=== PATIENT | female | born 1960 | race African-American/Black ===

== ENCOUNTER 2017-10-21 13:01 | Emergency (ER) | payer OTHER ==
[~2017-10-21] VITALS: Ht 167.6 cm; Wt 81.7 kg
[~2017-10-21 13:01] MED LIST: AMOXICILLIN 50500 M1 PO; TESSALON PERLE100 MG PO; VENTOLIN HFA 1818 GM INH; [UNRECOGNIZED DRUG - REMARK]
[2017-10-21] MEDS ORDERED: MUCINEX D TABL1 EAC1 PO (14:03)
[2017-10-21] MEDS ORDERED: VENTOLIN HFA 1818 GM INH (14:03)
[2017-10-21] MEDS ORDERED: IBUPROFEN 600600 M1 PO (14:03)
[2017-10-21] MEDS ORDERED: TESSALON PERLE100 MG PO (14:03)
== END 2017-10-21 14:50 | disposition home or self-care (01) ==
LOC: ER 13:01
DX: J11.1 Influenza due to unidentified influenza virus with other respiratory manifestations (principal); J98.01 Acute bronchospasm; R05 Cough; J06.9 Acute upper respiratory infection, unspecified; J45.909 Unspecified asthma, uncomplicated; Z98.890 Other specified postprocedural states

== ENCOUNTER → 2019-01-20 | Outpatient (CLI) | payer OTHER ==
[~2019-01-20] VITALS: Ht 167.6 cm; Wt 81.6 kg
[~2019-01-20] MED LIST changes: +IBUPROFEN 600600 M1 PO; +MUCINEX D TABL1 EAC1 PO; +MULTIVITAMINS1 EAC7 PO; +VITAMIN D3400 UNIT PO
--- NOTE | 2019-01-22 08:24 | P ---
[facility] [place] [address] PROCEDURE REPORT Name: REJI PRINGLE Room #: REG YUDI Sims#: [id number] Admission: 01/20/19 ������������������ Attend Phys: Lio Cervantes Discharge: ������������������ Date of : 56 Report #: [id number] THIS REPORT FOR: //name// CC: Lio Sanchez MD DATE OF SERVICE: 01/20/2019 PROCEDURE PERFORMED: Colonoscopy with biopsies. HISTORY OF PRESENT ILLNESS: The patient is a 58-year-old female who presents today for her first routine screening colonoscopy. She denies any symptoms. No family history of colon cancer. DESCRIPTION OF PROCEDURE: The risks and benefits of the procedure were explained to the patient, those risks including, but not limited to, bleeding, perforation and the risk of sedation. She understood these risks and gave informed consent. Sedation was given using propofol per anesthesia. Next, a digital rectal exam was initially performed, which was normal. Next, using a standard Olympus colonoscope, the scope was placed in the patient's anus and advanced under direct vision to the cecum. The overall prep was excellent. In the cecum near the appendiceal orifice, a small 3 mm sessile polyp was noted. This was removed with cold forceps, otherwise normal. The ileocecal valve was normal. The ascending and transverse colon were normal. In the descending colon, a 4 mm sessile polyp was noted and removed with cold forceps. Another 4 mm sessile polyp was noted in the sigmoid colon and removed with cold forceps. The rectal mucosa was normal. On retroflexion, no abnormalities were noted. The scope was then withdrawn and the procedure terminated. The patient tolerated the procedure well. IMPRESSION: 1. Three small colonic polyps. 2. Otherwise, normal colonoscopy. RECOMMENDATIONS: 1. Await biopsy results. 2. If polyps are hyperplastic, repeat in 10 years; if adenomatous polyp, repeat in 5 years. Thank you for allowing me to participate in her care. ��������������������������������������������� <ELECTRONICALLY SIGNED> ���������������������������������������� By: Lio Rowe MD ��������������������������������������������� 01/22/19 0824 1004 2230 Lio Rowe MD /nt
--- NOTE | 2019-01-22 13:08 | PATH ---
[facility] [place] [address] PATHOLOGY RPT PROCEDURE Name: MARITZA UNGER Room #: REG YUDI Yenny.#: [id number] ������������������ Admission: 01/20/19 ������������������ Date of : 56 Discharge: Report #: [id number] Path Case #: [id number] [facility] Accession Number: [id number] . 01 Material submitted: . PART A: cecum - BX POLYP AT CECUM PART B: colon - BX POLYP AT DESCENDING COLON. Modifiers: descending PART C: colon - BX POLYP AT SIGMOID COLON . 01 Clinical history: . Pre-op diagnosis: Screening Post-op diagnosis: Colon polyps . 02 Diagnosis: A. Colonic mucosa "biopsy polyp at cecum": - Hyperplastic polyps with focal early adenomatous change. - There is no evidence of high-grade dysplasia or malignancy. . B. Colonic mucosa "polyp at descending colon": - Fragments of hyperplastic polyps. - There is no evidence of adenomatous change, high-grade dysplasia or malignancy. . C. Colonic mucosa "polyp at sigmoid colon" - Tubular adenoma. - There is no evidence of high-grade dysplasia or malignancy. (SHA:misael 01/22/2019) QTP/01/22/2019 . 02 Electronically signed: . Álvaro Trinidad MD, Pathologist NPI- [id number] . 01 Gross description: . A. The specimen is received in formalin, labeled "Maritza Unger, biopsy polyp at cecum". Received are three segments of pale coronado soft tissue ranging in size from 0.3 to 0.5 cm in maximum dimensions. The specimen is submitted entirely in cassette A1. . B. The specimen is received in formalin, labeled "Maritza Unger, polyp at descending colon". Received are three segments of pale coronado soft tissue ranging in size from 0.2 to 0.7 cm in maximum dimensions. The specimen is submitted entirely in cassette B1. . C. The specimen is received in formalin, labeled "Maritza Unger, polyp at sigmoid colon". Received are four segments of pale coronado soft tissue ranging in size from 0.3 to 0.5 cm in maximum dimensions. [place] [address] PATHOLOGY RPT PROCEDURE Name: MARITZA UNGER Room #: REG YUDI Sims#: [id number] ������������������ Admission: 01/20/19 ������������������ Date of : 56 Discharge: Report #: [id number] Path Case #: [id number] submitted entirely in cassette C1. (CAA; 01/21/2019) QAC/QAC . 02 Pathologist provided ICD-10: D12.5, K63.5 . 02 CPT . 791527, 430049, 935056 Specimen Comment: A courtesy copy of this report has been sent to Specimen Comment: [phone], . Specimen Comment: Report sent to / DR JUSTICE Performed at: [address], [place] [id number] MD Jose Solis MD Phone: [phone] Performed at: [address] [id number] MD Shonna Moreno MD Phone: [phone]
== END | disposition home or self-care (01) ==
LOC: GI 08:21
DX: Z12.11 Encounter for screening for malignant neoplasm of colon (principal); K63.5 Polyp of colon; D12.5 Benign neoplasm of sigmoid colon; J45.909 Unspecified asthma, uncomplicated; Z98.51 Tubal ligation status; Z98.890 Other specified postprocedural states; Z79.899 Other long term (current) drug therapy
CPT/HCPCS: 62110; 62900

== ENCOUNTER → 2019-01-27 | Outpatient (CLI) | payer OTHER | LOC: RAD 12:25 | DX: Z12.31 Encounter for screening mammogram for malignant neoplasm of breast (principal) ==

== ENCOUNTER → 2019-02-03 | Outpatient (CLI) | payer OTHER | LOC: ULTRA 10:24 | DX: D25.9 Leiomyoma of uterus, unspecified (principal) ==

== ENCOUNTER 2019-12-13 12:58 | Emergency (ER) | payer OTHER ==
[~2019-12-13] VITALS: Ht 167.6 cm; Wt 77.1 kg
[2019-12-13 14:41] LABS: BASOPHILS 0.7 % (0.0-2.0); EOSINOPHILS 1.4 % (0.0-3.0); HEMATOCRIT 39.7 % (37.0-47.0); LYMPHOCYTES 38.5 % (24.0-44.0); MCH 31.9 pg (26.0-34.0); MCHC 32.8 g/dL (28.0-37.0); MCV 97.2 fL (80.0-100.0); MONOCYTES 6.5 % (1.0-8.0); PLATELET COUNT 221 thou/uL (150-400); POLYS 52.9 % (36.0-66.0); RBC 4.09 mil/uL (4.20-5.00); RDW 13.1 % (10.5-14.5); WBC 7.5 thou/uL (4.0-11.0)
[2019-12-13 14:50] LABS: ANION GAP 6 mmol/L (7-16); BUN 19 mg/dL (7-18); CALCIUM 9.4 mg/dL (8.5-10.1); CHLORIDE 100 mmol/L (98-107); CO2 31 mmol/L (21-32); CREATININE 0.9 mg/dL (0.6-1.0); GLUCOSE 102 mg/dL (74-106); POTASSIUM 3.8 mmol/L (3.5-5.1); SODIUM 137 mmol/L (136-145)
[2019-12-13 14:58] LABS: TROPONIN-I <0.06 ng/mL (<0.06)
--- NOTE | 2019-12-13 17:01 | EKG ---
[facility] [place] [address] ELECTROCARDIOGRAM REPORT Name: REJI PRINGLE Room #: REG [facility]..#: [id number] Admission: 12/13/19 Attend Phys: Discharge: Date of : 56 Report #: [id number] THIS REPORT FOR: cc: Elizabeth Sanchez MD, Nora P. MD Lundgren,Chicho Carrera MD [facility] ~ THIS REPORT FOR: //name// [facility] ED Test Date: 2019-12-13 Test Time: 14:26:59 Pat Name: REJI PRINGLE Department: Room: Gender: Cannoneer: [facility] : 1960 Requested By: Smith Hwang Order Number: [id number] MD: Chicho Barrett Measurements Intervals [place] Rate: 84 P: 44 DE: 195 QRS: -38 QRSD: 86 T: -29 QT: 400 QTc: 473 Interpretive Statements Sinus rhythm Left anterior hemiblock Left ventricular hypertrophy Nonspecific T abnormalities, diffuse leads No previous ECG available for comparison Electronically Signed On 12-13-2019 16:59:57 [employer]ATER [employer]UCK [employer] by Chicho Barrett [email or web address] <ELECTRONICALLY SIGNED> By: Chicho Barrett MD, [facility] 12/13/19 1659 1426 1426 Chicho Barrett MD, [facility] /EPI
[2019-12-13] MEDS ORDERED: NORVASC 2.5 MG2.5 M1 PO (17:26)
[2019-12-13 17:40] VITALS: BP 192/81
== END 2019-12-13 17:40 | disposition home or self-care (01) ==
LOC: ER 12:58
PROVIDERS: Emergency Medicine
DX: I67.4 Hypertensive encephalopathy (principal); J45.909 Unspecified asthma, uncomplicated

== ENCOUNTER → 2020-03-29 | Outpatient (CLI) | payer OTHER ==
[~2020-03-29] MED LIST changes: +NORVASC 2.5 MG2.5 M1 PO
== END ==
LOC: RAD 09:44
PROVIDERS: ATTEND Family Medicine
DX: Z12.31 Encounter for screening mammogram for malignant neoplasm of breast (principal)

== ENCOUNTER → 2020-04-24 | Outpatient (CLI) | payer OTHER | LOC: SJCVCIMAG 11:18 | PROVIDERS: ATTEND Internal Medicine | DX: I08.1 Rheumatic disorders of both mitral and tricuspid valves (principal); J45.909 Unspecified asthma, uncomplicated ==

== ENCOUNTER → 2021-04-03 | Outpatient (CLI) | payer OTHER | LOC: BC 03-30 13:32 | PROVIDERS: ATTEND Family Medicine | DX: Z12.31 Encounter for screening mammogram for malignant neoplasm of breast (principal) ==

== ENCOUNTER 2021-11-04 01:30 | Emergency (ER) | payer OTHER ==
[~2021-11-04] VITALS: Ht 167.6 cm; Wt 79.4 kg
[2021-11-04 02:04] LABS: ABSOLUTE NEUTROPHILS 4.2 thou/uL (1.4-8.2); BASOPHILS 0.4 % (0.0-2.0); EOSINOPHILS 1.6 % (0.0-3.0); HEMATOCRIT 34.2 % (37.0-47.0); HEMOGLOBIN 11.4 gm/dL (12.0-15.0); LYMPHOCYTES 40.4 % (24.0-44.0); MCH 32.1 pg (26.0-34.0); MCHC 33.2 g/dL (28.0-37.0); MCV 96.7 fL (80.0-100.0); MONOCYTES 8.8 % (1.0-8.0); PLATELET COUNT 234 thou/uL (150-400); POLYS 48.8 % (36.0-66.0); RBC 3.53 mil/uL (4.20-5.00); RDW 13.3 % (10.5-14.5); WBC 8.5 thou/uL (4.0-11.0)
[2021-11-04] MEDS ORDERED: BYSTOLIC10 MG PO (02:13)
[2021-11-04 02:20] LABS: CALCIUM 9.1 mg/dL (8.5-10.1); CREATININE 1.2 mg/dL (0.6-1.0); POTASSIUM 3.5 mmol/L (3.5-5.1)
[2021-11-04] MEDS ORDERED: HYDROCHLOROTHIA25 M1 PO (02:21)
[2021-11-04 02:30] LABS: ALBUMIN 3.7 g/dL (3.4-5.0); MAGNESIUM 2.1 mg/dL (1.8-2.4); TOTAL BILIRUBIN 0.2 mg/dL (0.2-1.0); TOTAL PROTEIN 7.8 g/dL (6.4-8.2)
[2021-11-04 03:00] VITALS: BP 148/60
--- NOTE | 2021-11-04 13:00 | EKG ---
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: : 1960 Requested By: Toney Gale Order Number: [id number] MD: Chicho Barrett Measurements Intervals [place] Rate: 68 P: 28 VT: 185 QRS: -25 QRSD: 86 T: -3 QT: 401 QTc: 427 Interpretive Statements Sinus rhythm Left ventricular hypertrophy Compared to ECG 12/13/2019 14:26:59 Left anterior fascicular block no longer present T wave abnormality no longer present Electronically Signed On 11-04-2021 13:00:27 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
== END 2021-11-04 03:03 | disposition home or self-care (01) ==
LOC: ER 01:30
PROVIDERS: Emergency Medicine
DX: R00.2 Palpitations (principal); Z20.822 Contact with and (suspected) exposure to COVID-19; J45.909 Unspecified asthma, uncomplicated; Z98.51 Tubal ligation status; Z79.899 Other long term (current) drug therapy